=== PATIENT | female | born 1975 | race Hispanic/Latino ===

== ENCOUNTER 2025-01-17 13:14 | Emergency (ER) | payer SELFPAY ==
[2025-01-17 13:45] VITALS: BP 123/76; PULSE 65; RESP 16; TEMP 36.1; O2SAT 99
--- NOTE | 2025-01-17 13:49 | ED_ITS ---
HPI - General Adult General Chief complaint: Nausea/Vomiting/Diarrhea Stated complaint: blood in poop Time Seen by Provider: 01/17/25 13:51 Source: patient, RN notes reviewed, old records reviewed and network planner ([place], Regi) Mode of arrival: ambulatory Limitations: no limitations History of Present Illness HPI narrative: 49-year-old female presents to the [facility] with concerns of having a bowel movement that was bloody. Use a post tensioning ironworker for clarification. Patient reports that at 11:00 a.m. she felt like she needed to have a bowel movement. States that it was all blood. Last normal bowel movement was yesterday. Denies any pain. Denies any significant history. Onset (ago): hour(s) Related Data Home Medications ?Medication ?Instructions ?Recorded ?Confirmed ?Last Taken ?Type No Home Medications 01/17/25 01/17/25 Unknown History Allergies Allergy/AdvReac Type Severity Reaction Status Date / Time No Known Allergies Allergy Verified 01/17/25 14:00 Review of Systems Review of Systems: All systems reviewed & are unremarkable except as noted in HPI and below Constitutional: Constitutional: Reports no additional constitutional complaints ENT: Reports system reviewed and no additional complaints, except as documented Cardiovascular: Cardiovascular: Reports no additional cardiovascular complaints, Denies chest pain and Denies dyspnea Respiratory: Respiratory: Reports no additional respiratory complaints, Denies chest congestion, Denies cough and Denies dyspnea Gastrointestinal: Gastrointestinal: Reports as per HPI, Reports hematochezia, Denies constipation, Denies diarrhea and Denies nausea Musculoskeletal: Musculoskeletal: Reports no additional musculoskeletal complaints Integumentary/Breasts: Skin/Breast: Reports system reviewed and no additional complaints, except as docu PMFSH Surgical History Surgical History (Updated 01/17/25 @ 14:14 by Misty Araujo APRN) Hx of cholecystectomy Comments At the time of my signature, I reviewed and agree with the nursing past medical, surgical, social, and family history. There is no relevant family history pertinent to the patient complaint. Exam Const: General: cooperative, healthy appearing, comfortable, no acute distress, well developed, alert and well nourished Nutritional Appearance: well nourished Orientation/consciousness: patient oriented x3 Limitations: no limitations HENMT: Head: normal to inspection Eyes: General: appearance normal, both eyes and all related structures Alignment and Position: alignment normal Neck: Neck: normal visual inspection, full ROM, no lymphadenopathy and no meningeal signs Chest: Chest palpation & inspection: normal inspection of the chest Resp: Effort & Inspection: normal respiratory effort and able to speak in complete sentences Auscultation: clear to auscultation bilaterally, no crackles, no rales, no rhonchi and no wheezes Cardio: Rate: regular rate GI: GI Palp: No abdominal tenderness and Yes Soft to palpation Rectal Exam: visual inspection normal, normal sphincter tone, No Lesions present (GI) and No Anal fissure(s) present Other: Patient with complaints of bloody stool. Unable to do fecal occult. Chaperoned by Ruab MARTINS Skin: General skin exam: normal color and no rashes or lesions noted Neuro: General: patient oriented x3, gait normal, moves all extremities and no meningeal signs Cognition (Neuro): normal cognition Speech: normal speech Gait exam (Neuro): Normal gait present Extrem: General: normal to inspection, full ROM, capillary refill normal and normal gait Psych: Appearance: grossly normal and well kempt Mental Status: mental status grossly normal Speech and movement: Normal speech and movement present and Clear speech present Affect: normal affect Attitude: cooperative Course Course Level of Care: Express Care Visit Vital Signs Vital signs: Vital Signs Temperature 97.0 F L 01/17/25 13:45 Pulse Rate 65 01/17/25 13:45 Respiratory Rate 16 01/17/25 13:45 Blood Pressure 123/76 01/17/25 13:45 Pulse Oximetry 99 01/17/25 13:45 Oxygen Delivery Room Air 01/17/25 13:45 Temperature 97.0 F L 01/17/25 13:45 Pulse Rate 65 01/17/25 13:45 Respiratory Rate 16 01/17/25 13:45 Blood Pressure 123/76 01/17/25 13:45 Pulse Oximetry 99 01/17/25 13:45 Oxygen Delivery Room Air 01/17/25 13:45 Reviewed Transfer Transfered to: [facility] Transportation: Other (poc) Transfer rationale: Spoke with Linden MARTINS, Dr Ortiz Accepting physician: Dr Ortiz Medical Decision Making MDM Narrative Medical decision making narrative: Patient sitting comfortably in exam room. Patient is nontoxic, vitals stable. Patient is not tachycardic. Patient presents with concerns of blood in the toilet, bowel movement at 11:00 a.m. this morning, 3 hours ago Through post tensioning ironworker patient was requesting further evaluation, unable to do an evaluation, discussed following up with primary care provider, patient is requesting to be transferred to the ER for further evaluation. Explained to patient that we cannot promise what they will do. Patient is requesting [facility] All questions have been answered, and the patient deny any further questions Some parts of this dictation were generated by voice recognition software and may contain typographical and/or grammatical inaccuracies. Differential Diagnosis Differential Diagnosis: Internal hemorrhoid, external hemorrhoid, GI bleed Medical Records Medical records reviewed: Yes I reviewed the external patient's medical records. Vital Signs Vital Signs: Vital Signs Temperature 97.0 F L 01/17/25 13:45 Pulse Rate 65 01/17/25 13:45 Respiratory Rate 16 01/17/25 13:45 Blood Pressure 123/76 01/17/25 13:45 Pulse Oximetry 99 01/17/25 13:45 Oxygen Delivery Room Air 01/17/25 13:45 Temperature 97.0 F L 01/17/25 13:45 Pulse Rate 65 01/17/25 13:45 Respiratory Rate 16 01/17/25 13:45 Blood Pressure 123/76 01/17/25 13:45 Pulse Oximetry 99 01/17/25 13:45 Oxygen Delivery Room Air 01/17/25 13:45 Reviewed Lab Data Lab results reviewed: Yes I reviewed the patient's lab results. Labs: Reviewed Critical Care Time Critical Care Time Critical Care Time: No Discharge Plan Discharge Clinical Impression: Bloody stool Patient Disposition: Acute Care Hospital Condition: Stable Instructions: Antibiotic Form Patient Language: [place]ese Prescriptions: No Action No Home Medications Follow-up/Referrals: PHYSICIAN,ASSEMBLY LINE ROBOT OPERATOR [Primary Care Provider] -
== END 2025-01-17 14:20 | disposition short-term general hospital (02) ==
PROVIDERS: Emergency Provider Nurse Practitioner
DX: K92.1 Melena (principal); Z90.49 Acquired absence of other specified parts of digestive tract
CPT/HCPCS: 99212; G0463

== ENCOUNTER 2025-07-24 18:09 | Emergency (ER) | payer OTHER, SELFPAY ==
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
--- OUTSIDE RECORDS SUMMARY | 2025-07-24 18:11 | XMS_ITS | Clinical Summary ---
Author Organization [facility] Address [address] [place] [id number] Care Team Providers Care Maintenance Representative Name Role Phone No, Physician Primary Care Provider Allergies No known active allergies Social History Tobacco Use Types Packs/Day Years Used Date Smoking Tobacco: Never Assessed Personal Safety Answer Date Recorded Have you ever been in or are you currently in a harmful physical or emotional relationship or is someone making you feel afraid or unsafe? Denies 01/17/2025 Comments Unknown Sex and Gender Information Value Date Recorded Sex Assigned at Not on file Legal Sex Female 2:50 PM SUPERVISOR ASSEMBL[employer] ROOM Gender Identity Not on file Sexual Orientation Not on file Last Filed Vital Signs Vital Sign Reading Time Taken Comments Blood Pressure 109/78 01/17/2025 5:28 PM [employer]PERVISOR [employer] RO[employer] Pulse 67 01/17/2025 5:28 PM [employer]PERVISOR [employer] RO[employer] Temperature 36.9 C (98.4 F) 01/17/2025 2:52 PM SUPERVISOR ASSEM[employer] RO[employer] Respiratory Rate 18 01/17/2025 5:28 PM SUPERVISOR ASSEM[employer] RO[employer] Oxygen Saturation 100% 01/17/2025 5:28 PM SUPERVISOR ASSEM[employer] RO[employer] Inhaled Oxygen Concentration - - Weight - - Height - - Body Mass Index - - Plan of Treatment Health Maintenance Due Date Last Done Comments Breast Cancer Screening-Mammogram 1974 Cervical Cancer Screening 1974 Colon Cancer Screening-Colonoscopy 1974 Depression Screening 1974 Hepatitis C Screening 1974 DTaP/Tdap/Td Vaccine (1 - Tdap) 1985 Hepatitis B Screening 1992 Regular Well Visit/Exam 18-64 1992 Zoster Vaccine (1 of 2) 2024 Influenza Vaccine (#1) 2025 Pneumococcal vaccine <65 Aged Out No longer eligible based on patient's age to complete this topic Care Teams Maintenance Representative Relationship Specialty Start Date End Date No, Physician PCP - General 3/8/25
[2025-07-24 19:13] VITALS: BP 129/67; PULSE 73; RESP 16; TEMP 37.2; O2SAT 100
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
[2025-07-24] MEDS: IBUPROFEN 400 MG TABLET PO (20:43)
[2025-07-24 20:45] VITALS: BP 125/74; PULSE 78; RESP 18; TEMP 36.9; O2SAT 99
== END 2025-07-24 20:49 | disposition home or self-care (01) ==
LOC: ANHED 20:41
PROVIDERS: Emergency Provider Emergency Medicine
DX: S16.1XXA Strain of muscle, fascia and tendon at neck level, initial encounter (principal); V49.50XA Passenger injured in collision with unspecified motor vehicles in traffic accident, initial encounter
CPT/HCPCS: 70450; 72125; 99284; A9270